=== PATIENT | female | born 1985 | race African-American/Black ===

== ENCOUNTER 2016-08-24 13:20 | Emergency (ER) | payer MEDICAID, OTHER ==
[~2016-08-24] VITALS: Ht 162.6 cm; Wt 122.0 kg
[~2016-08-24 13:20] MED LIST: ASPI81TA3 PO; IBUP-1542 PO; LEVE100018 PO; PREN1TAB17 PO
[2016-08-24 13:24] VITALS: Ht 162.6 cm; Wt 122.0 kg
[2016-08-24] MEDS ORDERED: ACETAMINOPHEN 325 MG TAB PO STA (14:06)
[2016-08-24 14:29] LABS: ADD SCAN DIFF NO
[2016-08-24 14:33] LABS: BASOPHILS % 0.8 % (0.0-2.0); EOSINOPHILS # 0.1 10^3/ul (0.0-0.5); EOSINOPHILS % 2.1 % (0.0-7.0); HEMATOCRIT 36.7 % (37.0-47.0); HEMOGLOBIN 11.6 g/dl (12.0-16.0); LYMPHOCYTES # 1.6 10^3/ul (0.8-2.9); LYMPHOCYTES % 30.3 % (15.0-51.0); MEAN CORPUSCULAR HEMOGLOBIN 26.5 pg (29.0-33.0); MEAN CORPUSCULAR HGB CONC 31.6 g/dl (32.0-37.0); MONOCYTE # 0.8 10^3/ul (0.3-0.9); NEUTROPHIL # 2.7 10^3/ul (1.6-7.5); NEUTROPHILS % 51.4 % (39.0-77.0); RED BLOOD COUNT 4.37 10^6/ul (4.20-5.40); RED CELL DISTRIBUTION WIDTH 14.7 % (11.5-14.5); WHITE BLOOD COUNT 5.3 10^3/ul (4.8-10.8)
[2016-08-24 15:13] LABS: URINE BLOOD (Dip) POC Negative (NEGATIVE)
--- NOTE | 2016-08-24 15:15 | RADRPT ---
PROCEDURE: OB Ultrasound. CLINICAL INDICATION: Positive test. Trauma due to a fall. Pelvic pain. Vaginal bleedi ng. TECHNIQUE: Ultrasound of the pelvis was performed with transabdominal sonography in the axial and sagittal planes. COMPARISON: No prior study is available for comparison. FINDINGS: There is a single intrauterine gestational sac. pole and yolk sac are present. There is heart motion. heart rate is 157 beats per minute. [place]-rump length is 4.19 cm. Mean sac diameter is 5.07 cm. Menstrual age by ultrasound dates is 11 weeks 2 days. This indicates an expected date of delivery of 03/13/2017. The ovaries are not visualized. There is no other pelvic mass or free fluid. IMPRESSION: 1. Single live intrauterine gestation of 11 weeks 2 days menstrual age by ultrasound dates. 2. Expected date of delivery is 03/13/2017. RPTAT: QQ .Cuba Lutz MD, MD Date Time Electronically viewed and signed by .Cuba Lutz MD, MD on 08/24/2016 15:15 .R/
--- NOTE | 2016-08-24 15:21 | ERD ---
ER Documentation Chief Complaint Date/Time DATE: 08/24/16 TIME: 15:14 Chief Complaint pelvic pain from fall last night; 13 wks HPI This is a 31-year-old female with past medical history for epilepsy and asthma presents to the emergency department for left leg pain and pelvic pain following fall last night. Patient states she was in the shower when she slipped and fell landing on her left hip. Patient now having lower pelvic pain. Patient is currently with last menstrual period 05/25/2016. Patient is a G 12 P 3 A 8. Patient states she is having pelvic cramping. Denies vaginal bleeding or vaginal discharge. No passage of clots or tissue. Patient has no history of complications at for her previous pregnancies. Patient's [employer]HOU[employer] MANAGER is Dr. Wilfrido Peng and next appointment is September 13, 2016. Patient has bruising to lateral aspect of upper left thigh. No limited mobility to bilateral lower extremities. Ambulates well. ROS All systems reviewed and are negative except as per history of present illness. Medications Home Meds Active Scripts Acetaminophen* (Tylenol*) 325 Mg Tablet, 1 TAB PO Q6 Y for PAIN AND OR ELEVATED TEMP, #20 TAB Prov:JORDIN LAGOS NP 08/24/16 Ibuprofen* (Motrin*) 600 Mg Tab, 600 MG PO Q6, #30 TAB Prov:MIGEL AVILA 10/30/14 Reported Medications Vit-Iron Fumarate-FA ( Tablet) 1 Each Tablet, 1 EACH PO DAILY 11/16/12 Aspirin (Aspirin) 81 Mg Chew, 81 MG PO DAILY 11/16/12 Levetiracetam* (Keppra*) 1,000 Mg Tablet, 500 MG PO BID 07/04/12 Allergies Allergies: Coded Allergies: Penicillins (Verified Allergy, Unknown, 09/28/12) PMhx/Soc History of Surgery: Yes (c/section) Anesthesia Reaction: No Hx Neurological Disorder: Yes (seizure) Hx Respiratory Disorders: Yes (ASTHMA) Hx Cardiac Disorders: No Hx Psychiatric Problems: No Hx Miscellaneous Medical Probl: Yes (ENDOMETRIOSIS) Hx Alcohol Use: No Hx Substance Use: No Hx Tobacco Use: No Physical Exam Vitals Vital Signs Date Time Temp Pulse Resp B/P Pulse Ox O2 Delivery O2 Flow Rate FiO2 08/24/16 13:24 97.5 86 18 133/64 100 Physical Exam Const: No acute distress, alert Head: Atraumatic Eyes: Normal Conjunctiva ENT: Normal External Ears, Nose and Mouth. Neck: Full range of motion..~ No meningismus. Resp: Clear to auscultation bilaterally Cardio: Regular rate and rhythm, no murmurs Abd: Soft, non tender, non distended. Normal bowel sounds Skin: No petechiae or rashes Back: No midline or flank tenderness Ext: Ecchymosis to lateral aspect of left upper leg. No bony tenderness or obvious deformity. Full mobility to bilateral lower extremities. Ambulates well. Neur: Awake and alert Psych: Normal Mood and Affect Result Diagram: 08/24/16 1426 Results 24 hrs Laboratory Tests Test 08/24/16 14:26 08/24/16 15:17 White Blood Count 5.310^3/ul Red Blood Count 4.3710^6/ul Hemoglobin 11.6g/dl Hematocrit 36.7% Mean Corpuscular Volume 84.0fl Mean Corpuscular Hemoglobin 26.5pg Mean Corpuscular Hemoglobin Concent 31.6g/dl Red Cell Distribution Width 14.7% Platelet Count 28503^3/UL Mean Platelet Volume 12.0fl Neutrophils % 51.4% Lymphocytes % 30.3% Monocytes % 15.0% Eosinophils % 2.1% Basophils % 0.8% Nucleated Red Blood Cells % 0.0/100WBC Neutrophils # 2.710^3/ul Lymphocytes # 1.610^3/ul Monocytes # 0.810^3/ul Eosinophils # 0.110^3/ul Basophils # 0.010^3/ul Nucleated Red Blood Cells # 0.010^3/ul Beta HCG, Quantitative 981647.0mIU/ml Bedside Urine pH (LAB) 7.0 Bedside Urine Protein (LAB) Negative Bedside Urine Glucose (UA) Negative Bedside Urine Ketones (LAB) Negative Bedside Urine Blood Negative Bedside Urine Nitrite (LAB) Negative Bedside Urine Leukocyte Esterase (L Negative Current Medications Medications (Trade) Dose Ordered Sig/Beata Route PRN Reason Start Time Stop Time Status Last Admin Dose Admin Acetaminophen (Tylenol Tab) 650 mg ONCE STAT PO 08/24/16 14:06 08/24/16 14:07 DC 08/24/16 14:20 Procedures/[place] [id number] Radiology Main Line: [phone] DIAGNOSTIC IMAGING REPORT Patient: EVETTE SALGUERO : 1985 Age: 31 Sex: F MR #: [id number] DOS: 08/24/16 1406 Ordering MD: JORDIN LAGOS NP Location: [facility] Room/Bed: PROCEDURE: OB Ultrasound. CLINICAL INDICATION: Positive test. Trauma due to a fall. Pelvic pain. Vaginal bleeding. TECHNIQUE: Ultrasound of the pelvis was performed with transabdominal sonography in the axial and sagittal planes. COMPARISON: No prior study is available for comparison. FINDINGS: There is a single intrauterine gestational sac. pole and yolk sac are present. There is heart motion. heart rate is 157 beats per minute. [place]-rump length is 4.19 cm. Mean sac diameter is 5.07 cm. Menstrual age by ultrasound dates is 11 weeks 2 days. This indicates an expected date of delivery of 03/13/2017. The ovaries are not visualized. There is no other pelvic mass or free fluid. IMPRESSION: 1. Single live intrauterine gestation of 11 weeks 2 days menstrual age by ultrasound dates. 2. Expected date of delivery is 03/13/2017. MDM: This is a 31-year-old female presenting to the emergency department after fall last night. Patient is currently 13 weeks with last mental period 05/25/2016. Patient is a A8. Patient states she was in the shower when she slipped and fell landing on her left hip. Now patient is having pain to lateral aspect of left upper thigh and pelvic cramping. No vaginal bleeding. Labs show mild anemia with no significant infection. Beta- hCG is 104,740. Urine is negative for infection. OB ultrasound reviewed by radiologist as single live intrauterine gestation of 11 weeks 2 days by ultrasound dates. Patient given Tylenol while in the ED with some relief of pain. Differential diagnosis includes but not limited to ectopic , threatened , missed , normal , subchorionic hemorrhage , ruptured ovarian cyst, UTI or pyelonephritis. Patient is appropriate for outpatient management and instructed to start a vitamin with iron. Instructed patient to follow-up with [employer] MANAGER in the next 2-3 days for reassessment. Return to ED sooner for any high fever, chest pain, difficulty breathing, shortness breath, wheezing, vomiting, diarrhea, abdominal pain or any new or worsening symptoms. Patient verbalizes understanding. All questions answered at discharge. Departure Diagnosis: Primary Impression: Fall with no significant injury Encounter type: initial encounter Qualified Code: W19.XXXA - Fall with no significant injury, initial encounter Additional Impression: Pelvic pain affecting Condition: Stable JORDIN LAGOS NP Aug 24, 2016 15:21
[2016-08-24 16:17] LABS: PLATELET COUNT 163 10^3/UL (140-415)
[2016-08-24] MEDS ORDERED: ACET325T33 PO (16:25)
[2016-08-24 16:32] VITALS: BP 129/69; PULSE 79; RESP 18; TEMP 98.1
== END 2016-08-24 16:32 | disposition home or self-care (01) ==
LOC: FTE 13:20
DX: O26.891 Other specified pregnancy related conditions, first trimester (principal); R10.2 Pelvic and perineal pain; O99.511 Diseases of the respiratory system complicating pregnancy, first trimester; J45.909 Unspecified asthma, uncomplicated; Z79.82 Long term (current) use of aspirin; Z3A.11 11 weeks gestation of pregnancy
CPT/HCPCS: 36415; 76801; 81003; 84702; 85025; 86900; 86901; Z7502; Z7610

== ENCOUNTER 2016-10-05 23:24 | Emergency (ER) | payer MEDICAID, OTHER ==
[~2016-10-05] VITALS: Ht 162.6 cm; Wt 126.0 kg
[~2016-10-05 23:24] MED LIST changes: +ACET325T33 PO
[2016-10-05 23:36] VITALS: Ht 162.6 cm; Wt 126.0 kg
--- NOTE | 2016-10-06 00:44 | ERD ---
ER Documentation Chief Complaint Date/Time DATE: 10/06/16 TIME: 00:43 Chief Complaint c/o vaginal bleeding, started today. 18 weeks HPI 31-year-old female presents here in emergency department for complaints of pelvic pain and vaginal spotting that started today. Patient states approximately 18 weeks . 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 LMP is 06/02/2016. Patient is complaining of pelvic pain cramping pain 4/10 scale, accompanying the vaginal spotting. Patient denies any fever or chills. Patient denies any nausea or vomiting. ROS All systems reviewed and are negative except as per history of present illness. Medications Home Meds Active Scripts Acetaminophen* (Tylenol*) 325 Mg Tablet, 1 TAB PO Q6 Y for PAIN AND OR ELEVATED TEMP, #20 TAB Prov:JORDIN LAGOS NP 08/24/16 Ibuprofen* (Motrin*) 600 Mg Tab, 600 MG PO Q6, #30 TAB Prov:MIGEL AVILA 10/30/14 Reported Medications Vit-Iron Fumarate-FA ( Tablet) 1 Each Tablet, 1 EACH PO DAILY 11/16/12 Aspirin (Aspirin) 81 Mg Chew, 81 MG PO DAILY 11/16/12 Levetiracetam* (Keppra*) 1,000 Mg Tablet, 500 MG PO BID 07/04/12 Allergies Allergies: Coded Allergies: Penicillins (Verified Allergy, Unknown, 09/28/12) PMhx/Soc History of Surgery: Yes (c/section) Anesthesia Reaction: No Hx Neurological Disorder: Yes (seizure) Hx Respiratory Disorders: Yes (ASTHMA) Hx Cardiac Disorders: No Hx Psychiatric Problems: No Hx Miscellaneous Medical Probl: Yes (ENDOMETRIOSIS) Hx Alcohol Use: No Hx Substance Use: Yes Hx Tobacco Use: No Smoking Status: Never smoker FmHx Family History: No coronary disease, No diabetes, No other Physical Exam Vitals Vital Signs Date Time Temp Pulse Resp B/P Pulse Ox O2 Delivery O2 Flow Rate FiO2 10/05/16 23:36 97.8 104 22 135/65 100 Physical Exam GENERAL: The patient is well developed and appropriate for usual state of health, in no apparent distress. CHEST: Clear to auscultation bilaterally. There are no rales, wheezes or rhonchi. HEART: Regular rate and rhythm. No murmurs, clicks, rubs or gallops. No S3 or S4. ABDOMEN: Soft, nontender and nondistended. Good bowel sounds. No rebound or guarding. No gross peritonitis. No gross organomegaly or masses. No Talbot sign or McBurney point tenderness. BACK: No midline or flank tenderness. EXTREMITIES: Equal pulses bilaterally. There is no peripheral clubbing, cyanosis or edema. No focal swelling or erythema. Full range of motion. Grossly neurovascularly intact. NEURO: Alert and oriented. Cranial nerves 2-12 intact. Motor strength in all 4 extremities with 5/5 strength. Sensation grossly intact. Normal speech and gait. SKIN: There is no apparent rash or petechia. The skin is warm and dry. HEMATOLOGIC AND LYMPHATIC: There is no evidence of excessive bruising or lymphedema. No gross cervical, axillary, or inguinal lymphadenopathy. Results 24 hrs PROCEDURE: US OB. CLINICAL INDICATION: Vaginal bleeding . Clinical estimate gestational age is 17 weeks 3 days with estimated delivery 03/13/2017 TECHNIQUE: Multiple sonographic images of the pelvis were obtained. The images were reviewed on a PACS workstation. COMPARISON: 08/24/2016 FINDINGS: There is a single live intrauterine gestation. Cardiac activity is present with 137 beats per minute. There is a cephalic presentation. Measurements were made in order to determine age. The results are as follows: BPD = 3.78 cm, 17 weeks 4 days HC = 14.71 cm, 17 weeks 6 days AC = 12.25 cm, 17 weeks 6 days FL = 2.49 cm, 17 weeks 4 days. Estimated gestational age of approximately 17 weeks 5 days. The estimated date of delivery is 03/11/2017. The EFW = 207.45 g, 0 pounds 7 ounces, 64% . The placenta is posterior and grade 0. There is no evidence for an abruption. There may be a low-lying placenta. There is a normal amount of amniotic fluid with maximum vertical pocket of 4.3 cm. IMPRESSION: Single live intrauterine gestation of approximately 17 weeks 5 days based on ultrasound measurements. The estimated date of delivery is 03/11/2017 . Possible low-lying placenta. Follow-up is recommended. RPTAT: HJES .Marques Buckley MD, Date Time Electronically viewed and signed by .Marques Buckley MD, MD on 10/06/2016 01:28 .S/ CC: ALESIA PAGE NP Patient's ultrasound was already done, upon trying to dry blood and urine tests , patient refused this, patient states that all she needed was to note that she has heartbeat on her baby, she saw a heartbeat while doing the ultrasound, patient refuses any more blood tests to be done, patient sign against medical advise, inform of the risks, including urinary tract infection, possible low hemoglobin from bleeding, patient was stable upon walking out of the emergency department. Procedures/MDM Medical Decision Making: Patients vaginal bleeding is most likely consistent of possible threatened , patient has a low lying placenta a be causing the bleeding. Patient does not show any evidence of hypovolemic shock. Patient s hemoglobin and hematocrit was not checked since patient did not want blood tests done. There is low suspicion for ectopic . ELVIS results show right to 17 week BetaHCG Quantitative was checked since patient reveals any blood tests. Rh+ from previous blood test reviewed. We'll gum not indicated at this time. Patient is stable at this time. Disposition: Signed out AGAINST MEDICAL ADVICE. Condition: Stable Instructions: Patient is advised to do bed rest, avoid heavy lifting, and avoid having sex until cleared by OB doctor. Patient is advised to follow up with OB doctor or here at the ER in 48 hours for reevaluation of symptoms, repeat beta HCG quantitative and ultrasound. Patient is advised that is symptoms are worst, severe bleeding, dizziness, severe abdominal pain, fever, worst signs and symptoms to return to the emergency department immediately. Disclaimer: Inadvertent spelling and grammatical errors are likely due to EHR/ dictation software use and do not reflect on the overall quality of patient care. Also, please note that the electronic time recorded on this note does not necessarily reflect the actual time of the patient encounter. Departure Diagnosis: Primary Impression: Vaginal bleeding Additional Impression: Intrauterine Condition: Stable ALESIA PAGE NP Oct 06, 2016 00:44
--- NOTE | 2016-10-06 01:28 | RADRPT ---
PROCEDURE: US OB. CLINICAL INDICATION: Vaginal bleeding . Clinical estimate gestational age is 17 weeks 3 days wit h estimated delivery 03/13/2017 TECHNIQUE: Multiple sonographic images of the pelvis were obtained. The images were reviewed on a PACS workstation. COMPARISON: 08/24/2016 FINDINGS: There is a single live intrauterine gestation. Cardiac activity is present with 137 beats per minut e. There is a cephalic presentation. Measurements were made in order to determine age. The results are as follows: BPD =3.78 cm, 17 weeks 4 days HC =14.71 cm, 17 weeks 6 days AC =12.25 cm, 17 weeks 6 days FL =2.49 cm, 17 weeks 4 days. Estimated gestational age of approximately 17 weeks 5 days. The estimated date of delivery is 03/11/2017. The EFW = 207.45 g, 0 pounds 7 ounces, 64% . The placenta is posterior and grade 0. There is no evidence for an abruption. There may be a low-ly ing placenta. There is a normal amount of amniotic fluid with maximum vertical pocket of 4.3 cm. IMPRESSION: Single live intrauterine gestation of approximately 17 weeks 5 days based on ultrasound measurements . The estimated date of delivery is 03/11/2017 . Possible low-lying placenta. Follow-up is recomme nded. RPTAT: HJES .Marques Buckley MD, Date Time Electronically viewed and signed by .Marques Buckley MD, on 10/06/2016 01:28 .S/
[2016-10-06 03:16] LABS: ADD UMIC YES; UR AMORPHOUS CRYSTAL FEW /HPF (NONE SEEN); UR ASCORBIC ACID NEGATIVE (NEGATIVE); UR BILIRUBIN (Dip) NEGATIVE (NEGATIVE); UR BLOOD (Dip) 2+ mg/dL (NEGATIVE); UR CLARITY CLOUDY (CLEAR); UR COLOR YELLOW (YELLOW); UR GLUCOSE (Dip) NEGATIVE (NEGATIVE); UR KETONES (Dip) NEGATIVE (NEGATIVE); UR LEUKOCYTE ESTERASE (Dip) TRACE Leu/ul (NEGATIVE); UR MUCUS FEW /HPF (NONE SEEN); UR NITRITE (Dip) NEGATIVE (NEGATIVE); UR RBC 0 /HPF (0-5); UR SPECIFIC GRAVITY (Dip) 1.018 (1.003-1.030); UR SQUAMOUS EPITHELIAL CELL MANY /HPF (FEW); UR TOTAL PROTEIN (Dip) NEGATIVE (NEGATIVE); UR UROBILINOGEN (Dip) 1+ mg/dL (NEGATIVE)
== END 2016-10-06 01:34 | disposition left against medical advice (07) ==
LOC: FTE 23:24
DX: O20.9 Hemorrhage in early pregnancy, unspecified (principal); J45.909 Unspecified asthma, uncomplicated; O99.512 Diseases of the respiratory system complicating pregnancy, second trimester; Z3A.17 17 weeks gestation of pregnancy
CPT/HCPCS: 76805; 81001; Z7502

== ENCOUNTER 2017-09-24 20:02 | Emergency (ER) | END 2017-09-24 21:59 | disposition left against medical advice (07) ==